=== PATIENT | male | born 1980 | race Caucasian/White ===

== ENCOUNTER 2022-06-04 10:16 | Emergency (ER) | payer OTHER ==
[2022-06-04 13:01] LABS: HEMOGLOBIN 13.3 gm/dl (14.0-17.5); RED BLOOD COUNT 4.63 M/UL (4.20-5.50); WHITE BLOOD COUNT 8.1 K/UL (4.5-11.0)
[2022-06-04 13:43] LABS: BUN/CREATININE RATIO 11 (0-10)
[2022-06-04] MEDS ORDERED: LASIX40 MG PO (17:01)
== END 2022-06-04 17:17 | disposition home or self-care (01) ==
LOC: ER1 10:16
PROVIDERS: Student in an Organized Health Care Education/Training Program
DX: R07.9 Chest pain, unspecified (principal); R00.1 Bradycardia, unspecified; F17.210 Nicotine dependence, cigarettes, uncomplicated; R60.0 Localized edema
CPT/HCPCS: 71045; 80053; 82550; 82553; 83880; 84484; 85025; 93005; 96374; 99285; J1940